=== PATIENT | female | born 1940 | race Caucasian/White ===

== ENCOUNTER 2017-10-23 11:57 | Outpatient (CLI) | payer MEDICARE, BC ==
--- NOTE | 2017-10-23 14:21 | RAD ---
BARIUM ENEMA SOLID COLUMN: HISTORY: Incomplete colonoscopy. Tortuous sigmoid colon. Diverticulosis. FINDINGS: Single column barium evaluation shows normal caliber of the colon. Scattered diverticula arise from the sigmoid colon without adjacent inflammation. The appendix was refluxed. IMPRESSION: Mild diverticulosis. No significant abnormalities are demonstrated. POS: [facility]
== END 2017-10-23 11:58 | disposition home or self-care (01) ==
LOC: RAD 11:57
PROVIDERS: ATTEND Internal Medicine Gastroenterology
DX: K57.30 Diverticulosis of large intestine without perforation or abscess without bleeding (principal); Z12.11 Encounter for screening for malignant neoplasm of colon
CPT/HCPCS: 74270

== ENCOUNTER 2024-08-12 08:08 | Outpatient (CLI) | payer MEDICARE, BC | END 2024-08-12 08:09 | disposition home or self-care (01) | LOC: NM 08:08 | PROVIDERS: ATTEND Internal Medicine Nephrology | DX: E21.0 Primary hyperparathyroidism (principal); I12.9 Hypertensive chronic kidney disease with stage 1 through stage 4 chronic kidney disease, or unspecified chronic kidney disease; N18.4 Chronic kidney disease, stage 4 (severe); R94.8 Abnormal results of function studies of other organs and systems | CPT/HCPCS: 76770; 78072; 93975; A9500 ==